=== PATIENT | male | born 1960 ===

== ENCOUNTER 2017-02-28 08:14 | Emergency (ER) | payer SELFPAY ==
[~2017-02-28] VITALS: Ht 175.3 cm; Wt 115.5 kg
[2017-02-28 08:30] VITALS: Ht 175.3 cm; Wt 115.5 kg
== END 2017-02-28 09:35 | disposition left against medical advice (07) ==
LOC: E/R 08:14
DX: Z53.21 Procedure and treatment not carried out due to patient leaving prior to being seen by health care provider (principal)